=== PATIENT | female | born 1995 | race Caucasian/White ===

== ENCOUNTER → 2020-07-21 | Outpatient (CLI) | payer BC, OTHER ==
[~2020-07-21] MED LIST: PRENATAL TABLE1 EAC1 PO; PRENATAL VITAM1 EAC6 PO; TAMIFLU 75 MG C75 MG PO
== END ==
LOC: LAB 12:29
DX: Z32.00 Encounter for pregnancy test, result unknown (principal)
CPT/HCPCS: 36415; 84702

== ENCOUNTER → 2020-11-10 | Outpatient (CLI) | payer BC, OTHER | LOC: LAB 10:32 | DX: Z32.00 Encounter for pregnancy test, result unknown (principal) | CPT/HCPCS: 36415; 84702 ==